=== PATIENT | female | born 1955 | race Asian ===

== ENCOUNTER 2018-11-09 23:23 | Emergency (ER) | payer OTHER ==
[~2018-11-09] VITALS: Ht 149.9 cm; Wt 79.0 kg
[2018-11-10] MEDS ORDERED: ASPIRIN 81MG TABLET PO ONE (01:45)
[2018-11-10 02:18] LABS: BASOPHILS % 0.2 % (0.0-2.0); EOSINOPHILS % 0.9 % (0.0-5.0); HEMATOCRIT. 36.8 % (36.0-48.0); HEMOGLOBIN. 12.3 g/dL (12.0-16.0); LYMPHOCYTES % 14.5 % (20.0-50.0); MEAN CORPUSCULAR HEMOGLOBIN 29.3 pg (28.0-32.0); MEAN PLATELET VOLUME 8.1 fl (7.4-10.4); MONOCYTES % 5.6 % (2.0-8.0); NEUTROPHILS % 78.8 % (40.0-76.0); PLATELET 218 x1000/uL (130-400); RED BLOOD CELL COUNT 4.19 mill/uL (4.2-5.4); RED CELL DISTRIBUTION WIDTH 12.8 % (11.6-14.6)
[2018-11-10 02:21] LABS: CHLORIDE 104 mEq/L (98-107)
[2018-11-10 02:23] LABS: PROTHROMBIN TIME 9.8 sec (9.1-11.1)
[2018-11-10] MEDS ORDERED: POTASSIUM CHLORIDE 20MEQ TABLET SR PO ONE (03:30)
[2018-11-10 06:15] VITALS: BP 115/94
== END 2018-11-10 06:30 | disposition home or self-care (01) ==
LOC: ER 23:23
DX: R07.9 Chest pain, unspecified (principal); I10 Essential (primary) hypertension
CPT/HCPCS: 36415; 71045; 83880; 84484; 93005; 99284

== ENCOUNTER 2024-02-27 23:05 | Emergency (ER) | payer MEDICARE ==
[~2024-02-27] VITALS: Ht 149.9 cm; Wt 68.0 kg
[~2024-02-27 23:05] MED LIST: ALPR0.25 PO; AMLO10TA80 MT; ATOR10TA MT; DYZ MT; LOSA50TA41 MT; METF-873 PO; METO-411 MT; SEMA0.258
[2024-02-27 23:18] VITALS: BP 144/78; PULSE 119; RESP 18; TEMP 98.1; O2SAT 98
[2024-02-28 00:07] LABS: BASOPHILS % 0.6 % (0.0-2.0); EOSINOPHILS % 2.4 % (0.0-5.0); HEMATOCRIT. 32.6 % (36.0-48.0); HEMOGLOBIN. 10.8 g/dL (12.0-16.0); LYMPHOCYTES % 12.9 % (20.0-50.0); MEAN CORPUSCULAR HEMOGLOBIN 29.2 pg (28.0-32.0); MEAN CORPUSCULAR VOLUME 88.6 fL (81.0-99.0); MEAN PLATELET VOLUME 8.2 fl (7.4-10.4); MONOCYTES % 6.9 % (2.0-8.0); NEUTROPHILS % 77.2 % (40.0-76.0); PLATELET 256 x1000/uL (130-400); RED BLOOD CELL COUNT 3.69 mill/uL (4.2-5.4); RED CELL DISTRIBUTION WIDTH 15.2 % (11.6-14.6); WHITE BLOOD COUNT 6.6 x1000/uL (4.5-11.0)
[2024-02-28 00:20] LABS: CHLORIDE 107 mEq/L (98-107); SODIUM 140 mEq/L (136-145)
[2024-02-28 00:21] LABS: CALCIUM 9.6 mg/dL (8.7-10.4); CARBON DIOXIDE 27 mEq/L (21-32)
[2024-02-28 00:25] LABS: CREATININE 0.9 mg/dL (0.6-1.0); GLUCOSE 233 mg/dL (70-105)
[2024-02-28 00:26] LABS: UREA NITROGEN BLOOD 11 mg/dL (9-23)
== END 2024-02-28 04:56 | disposition left against medical advice (07) ==
LOC: ER 23:05
DX: R06.02 Shortness of breath (principal); Z53.21 Procedure and treatment not carried out due to patient leaving prior to being seen by health care provider
CPT/HCPCS: 36415; 71045; 80048; 85025; 93005